=== PATIENT | female | born 1950 | race Caucasian/White ===

== ENCOUNTER 2017-05-22 18:15 | Emergency (ER) | payer MEDICARE, BC ==
[2017-05-22 18:21] VITALS: BP 151/63
[2017-05-22] MEDS ORDERED: Azithromycin TAB* 250 MG PO ONE (18:45)
--- NOTE | 2017-05-22 18:49 | UC ---
Throat Pain/Nasal Ej HPI - HPI Summary HPI Summary: FIVE DAYS OF SINUS PRESSURE, CONGESTION , NIGHT TIME COUGH. FEELS WORSENING PAIN IN (FRONTAL AND MAXILLARY) SINUSES WITH POSITION, AND PRESSURE IN EARS (L>R ). - History of Current Complaint Chief Complaint: UCRespiratory Stated Complaint: SINUS PAIN Time Seen by Provider: 05/22/17 18:23 Hx Obtained From: Patient Onset/Duration: Gradual Onset, Lasting Days, Still Present Severity: Moderate Cough: Nonproductive Associated Signs & Symptoms: Positive: Sinus Discomfort, Nasal Discharge - Allergies/Home Medications Allergies/Adverse Reactions: Allergies Allergy/AdvReac Type Severity Reaction Status Date / Time Penicillins Allergy HIVES, Verified 03/27/14 10:58 EDEMA TO FACE CLAMS Allergy Hives Uncoded 03/27/14 10:58 Home Medications: Home Medications Fluticasone NASAL * [Flonase *] 2 spray BOTH NARES DAILY 05/22/17 [History Confirmed 05/22/17] Loratadine [Claritin 10 MG CAP] 10 mg PO 05/22/17 [History] Metoprolol Succinate [Toprol Xl] 25 mg PO 05/22/17 [History] Pseudoephedrine HCl [Sudafed 12 Hour] 120 mg PO 05/22/17 [History] PMH/Surg Hx/FS Hx/Imm Hx Previously Healthy: Yes - Surgical History Surgical History: Yes Surgery Procedure, Year, and Place: C SECTION [facility] [place], 1970, 1973. Carpal tunnel [place] , [facility] [place], 1994 - Family History Known Family History: Negative: Respiratory Disease - Social History Occupation: Employed Part-time, Retired Lives: With Family Alcohol Use: Daily Alcohol Amount: 1-2 PER DAY Substance Use Type: None Smoking Status (MU): Former Smoker Amount Used/How Often: PACK A DAY Have You Smoked in the Last Year: No When Did the Patient Quit Smoking/Using Tobacco: 2010 Review of Systems Constitutional: Negative Skin: Negative Eyes: Negative ENT: Ear Ache, Nasal Discharge, Sinus Congestion, Sinus Pain/Tenderness Respiratory: Cough Cardiovascular: Negative Gastrointestinal: Negative Genitourinary: Negative Motor: Negative Neurovascular: Negative Musculoskeletal: Negative Neurological: Negative Psychological: Negative All Other Systems Reviewed And Are Negative: Yes Physical Exam Triage Information Reviewed: Yes Appearance: Well-Appearing, No Pain Distress, Well-Nourished Vital Signs: Initial Vital Signs Temp 98.3 F 05/22/17 18:18 Pulse 74 05/22/17 18:18 Resp 18 05/22/17 18:18 BP 151/63 05/22/17 18:18 Pulse Ox 99 05/22/17 18:18 Vital Signs Reviewed: Yes Eye Exam: Normal ENT: Positive: Hearing grossly normal, Nasal congestion, TM bulging, TM dull Dental Exam: Normal Neck exam: Normal Neck: Positive: Supple, Nontender, No Lymphadenopathy Respiratory Exam: Normal Respiratory: Positive: Chest non-tender, Lungs clear, Normal breath sounds, No respiratory distress, No accessory muscle use Cardiovascular Exam: Normal Cardiovascular: Positive: RRR, No Murmur, Pulses Normal Abdominal Exam: Normal Musculoskeletal Exam: Normal Musculoskeletal: Positive: Strength Intact, ROM Intact Neurological Exam: Normal Psychological Exam: Normal Skin Exam: Normal Throat Pain/Nasal Course/Dx - Differential Dx/Diagnosis Differential Diagnosis/HQI/PQRI: Sinusitis, Tonsillitis, URI Provider Diagnoses: SINUSITIS Discharge - Discharge Plan Condition: Stable Disposition: HOME Prescriptions: Azithromycin TAB* [Zithromax TAB (Z-HEVER) 250 mg #6 tabs] 250 mg PO DAILY #6 tab Fluticasone NASAL SPRAY 50MCG* [Flonase NASAL SPRAY 50MCG*] 2 spray BOTH NARES DAILY #1 btl Patient Education Materials: Sinusitis (ED) Referrals: Aidee Tenorio MD [Primary Care Provider] -
== END 2017-05-22 18:54 | disposition home or self-care (01) ==
LOC: UCEAST 18:15
DX: J32.9 Chronic sinusitis, unspecified (principal)
CPT/HCPCS: 99212; A9270-GY; G0463

== ENCOUNTER 2017-09-25 08:41 | Emergency (ER) | payer MEDICARE, BC ==
[2017-09-25 08:48] VITALS: BP 147/67
--- NOTE | 2017-09-25 09:20 | UC ---
Eye Complaint HPI - HPI Summary HPI Summary: 67 yo WH c/o B/L red eyes associated with clear drainage from L>R eye, and "a viral illness coming on". Denies Pain, photophobia, yellow d/c or itchiness. Last time she had an episode like this she was allergic to something in the "environment" - History of Current Complaint Chief Complaint: UCEye Stated Complaint: EYE COMPLAINT Time Seen by Provider: 09/25/17 08:52 Hx Obtained From: Patient Onset/Duration: Gradual Onset Severity Initially: Moderate - Allergies/Home Medications Allergies/Adverse Reactions: Allergies Allergy/AdvReac Type Severity Reaction Status Date / Time Penicillins Allergy HIVES, Verified 09/25/17 08:48 EDEMA TO FACE CLAMS Allergy Hives Uncoded 09/25/17 08:48 PMH/Surg Hx/FS Hx/Imm Hx Previously Healthy: Yes - Surgical History Surgical History: Yes Surgery Procedure, Year, and Place: C SECTION [facility] [place], 1970, 1973. Carpal tunnel [place] , [facility] [place], 1994 - Family History Known Family History: Negative: Respiratory Disease - Social History Alcohol Use: Daily Alcohol Amount: 1-2 PER DAY Substance Use Type: None Smoking Status (MU): Former Smoker Amount Used/How Often: PACK A DAY Have You Smoked in the Last Year: No When Did the Patient Quit Smoking/Using Tobacco: 2010 Review of Systems Constitutional: Negative Skin: Negative Eyes: Drainage, Eye Redness - no changes in vision, or photophobia ENT: Negative Respiratory: Negative Cardiovascular: Negative Gastrointestinal: Negative Genitourinary: Negative Motor: Negative Neurovascular: Negative Musculoskeletal: Negative Neurological: Negative Psychological: Negative All Other Systems Reviewed And Are Negative: Yes Physical Exam Triage Information Reviewed: Yes Vital Signs: Initial Vital Signs Temp 36.7 C 09/25/17 08:44 Pulse 59 09/25/17 08:44 Resp 16 09/25/17 08:44 BP 147/67 09/25/17 08:44 Pulse Ox 100 09/25/17 08:44 Vital Signs Reviewed: Yes Eye Exam: Normal Eyes: Positive: Discharge, Other: - B/L conjunctivial injection/erythema ENT Exam: Normal ENT: Positive: Normal ENT inspection Dental Exam: Normal Neck exam: Normal Neck: Positive: 1 Respiratory Exam: Normal Cardiovascular Exam: Normal Abdominal Exam: Normal Musculoskeletal Exam: Normal Neurological Exam: Normal Psychological Exam: Normal Skin Exam: Normal Eye Complaint Course/Dx - Differential Dx/Diagnosis Differential Diagnosis/HQI/PQRI: Other - allergic vs viral conjunctivitis Provider Diagnoses: conjunctivitis Discharge - Discharge Plan Condition: Stable Disposition: HOME Prescriptions: Olopatadine 0.1% OPHTH (NF) [Patanol 0.1% OPHTH (NF)] 0.1 % OP BID #1 [email or web address] Referrals: Hilary Wilson NP [Primary Care Provider] - Additional Instructions: F/u with optho in 1 week if sx do not improve
== END 2017-09-25 09:35 | disposition home or self-care (01) ==
LOC: UCEAST 08:41
DX: H10.9 Unspecified conjunctivitis (principal)
CPT/HCPCS: 99212; G0463

== ENCOUNTER 2024-10-11 10:57 | Observation (INO) ==
[~2024-10-11 10:57] MED LIST: Naloxone 0.4 mg VIAL 0.4 mg/ml 1 ml VIAL IV PRN; Ondansetron 4 mg VIAL 2 MG/ML 2 ml VIAL IV PRN
[2024-10-11] MEDS ORDERED: Midazolam 2 mg/2 ml VIAL 1 mg/ml 2 ml VIAL (2 mg) ONE (11:51)
[2024-10-11] MEDS ORDERED: Propofol 10 MG/ML 20 ML BTL ONE ×2 (11:51→13:14)
[2024-10-11] MEDS ORDERED: Lidocaine 2% PF 5 ML VIAL ONE (11:51)
[2024-10-11] MEDS ORDERED: fentaNYL 100 mcg/2 ml 50 MCG/ML VIAL ONE ×3 (11:51→15:44)
[2024-10-11] MEDS ORDERED: Chlorhexidine MOUTHWASH 0.12% 15 ML UDC ONE (11:57)
[2024-10-11] MEDS ORDERED: ceFAZolin 2 GM PREMIX 2 GM/50 ML BAG ONE (11:57)
[2024-10-11] MEDS ORDERED: Famotidine IV 10 MG/ML 2 ml VIAL (20 mg) ONE (11:57)
[2024-10-11 12:01] LABS: Rapid COVID-19 Molecular Undetected (Undetected)
[2024-10-11] MEDS: Lactated Ringers 1000 ml BAG 1,000 ML IV SCH ×2 (12:03→17:27)
[2024-10-11] MEDS: Famotidine IV 10 MG/ML 2 ml VIAL (20 mg) IV ONE (12:04)
[2024-10-11] MEDS ORDERED: Lidocaine 1% w EPI 1:100,000 MDV 50 ML VIAL ONE (13:21)
[2024-10-11] MEDS ORDERED: ceFAZolin VIAL VIAL ONE (13:21)
[2024-10-11] MEDS ORDERED: Rocuronium 50 mg VIAL 10 mg/ml 5 ml VIAL (50 mg) ONE (13:27)
[2024-10-11] MEDS ORDERED: Thrombin 5,000 UNITS 1 APPLIC KIT - topical use - TOPICAL ONE (13:29)
[2024-10-11] MEDS ORDERED: Dexamethasone IV 4 MG/ML VIAL 1 ml VIAL ONE (14:28)
[2024-10-11] MEDS ORDERED: Ondansetron 4 mg VIAL 2 MG/ML 2 ml VIAL ONE (14:28)
[2024-10-11] MEDS ORDERED: Senna TAB 8.6 mg TAB PO PRN (15:30)
[2024-10-11] MEDS ORDERED: Calcium Carb (TUMS) 500 mg CHEW TAB PO PRN (15:30)
[2024-10-11] MEDS ORDERED: HYDROcodone/ACETAMIN 5/325 mg TAB PO PRN (15:30)
[2024-10-11] MEDS ORDERED: Ondansetron 4 mg VIAL 2 MG/ML 2 ml VIAL IV PRN (15:30)
[2024-10-11] MEDS ORDERED: Dextran 70/Hypromellose Tears Eye Drops 15 ml BTL (for Artificials Tears) BOTH EYES PRN (15:30)
[2024-10-11] MEDS ORDERED: Magnesium Hydroxide LIQ 30 ML UDC PO PRN (15:30)
[2024-10-11] MEDS ORDERED: Phenol 1.4% Throat Spray BTL MT PRN (15:30)
[2024-10-11] MEDS ORDERED: Morphine 2 MG/ML SYRINGE IV PRN (15:30)
[2024-10-11] MEDS: fentaNYL 100 mcg/2 ml 50 MCG/ML VIAL IV PRN (15:51)
[2024-10-11] MEDS: HYDROcodone/ACETAMIN 5/325 mg TAB PO PRN (18:52)
[2024-10-11] MEDS: Benzocaine/Menthol LOZ MT PRN (19:36)
[2024-10-12] MEDS ORDERED: Buffered Lidocaine 1% SYRIN 1 ml INTRADERM ONE (06:00)
[2024-10-12 09:55] VITALS: BP 125/60
== END 2024-10-12 12:19 | disposition home or self-care (01) ==
LOC: SSU 10:57 → OR 10:57
PROVIDERS: ADMIT Neurological Surgery; ATTEND Neurological Surgery